=== PATIENT | male | born 1975 | race Two or more races ===

== ENCOUNTER 2024-07-16 13:38 | Emergency (ER) | payer OTHER, SELFPAY ==
[2024-07-16] VITALS (8 sets, daily range): BP systolic 130–148; BP diastolic 80–91; BMI 27.1
--- NOTE | 2024-07-16 14:39 | ED.GENMED ---
History of Present Illness
<IRENE Heredia - Last Filed: 07/16/24 21:43>
General
Chief Complaint: Abdominal Pain
Source: patient and spouse
Exam Limitations: none
Time Seen by Provider: 07/16/24 14:13
History of Present Illness
History of Present Illness:
This is a 48 y/o M with a PMH of HLD and prediabetes who presents with intermittent upper abdominal pain x 1 month. Initially patient reported it comes on with activity however now has noticed there is no association and may come on randomly during
the day. This was described as a squeezing sensation in the RUQ and near diaphragm that radiates around circumference of upper belly and back. He feels better with rest and worse with movement. This has been episodic x 1 month and usually
spontaneously resolves however todays episode did not resolve prompting him to come to ED. He took advil before coming to ED that seemed to have helped a little. This is a 9/10 pain at it's worst and the pain 'takes my breath away' and he is unable
to talk. There is associated pain on deep inspiration. This comes along during the squeezing pain felt in the upper abdomen and would resolve spontaneously. He denies fevers, lightheadedness, chest pain, shortness of breath, nausea, vomiting,
changes in bowel or bladder habits or paresthesias.
He denies a PMH of carditis, HTN, CHF, AAA, pancreatitis, cholecystitis, cholelithiasis, nephrolithiasis, hepatic disorders, PE, pneumonia, rib fracture. Family history significant for HLD in both parents. Abdominal surgery history unremarkable. He
used to smoke tobacco 'on special occasions'. He drinks liquor 3-4x weekly. He denies drug use. He has no sick contacts that he knows of. He denies travel history. No allergies to medications.
Past History
<IRENE Heredia - Last Filed: 07/16/24 21:43>
Social History
Tobacco: Former smoker
Alcohol: Occasional
Drug: None
Personal:
Review of Systems
<IRENE Heredia - Last Filed: 07/16/24 21:43>
Review of Systems
Constitutional: Reports no symptoms
EENT: Reports no symptoms
Respiratory: Reports other (pleuritic pain); Denies hemoptysis
Cardiac: Denies chest pain, diaphoresis or palpitations
ABD/GI: Reports abdominal pain; Denies nausea, vomiting, diarrhea or constipated
: Reports no symptoms; Denies dysuria, frequency, flank pain, bleeding or dark urine
Skin: Reports no symptoms
Neurological: Reports no symptoms
Endocrine: Reports no symptoms
Hematologic/Lymphatic: Reports no symptoms
Psychiatric: Reports no symptoms
Phy Exam
<IRENE Heredia Last Filed: 07/16/24 21:43>
General Physical Exam
General Presentation: well appearing and no apparent distress
General age: appears stated age
General Skin: warm and dry
General Habitus: normal
General Mental: alert
General Hydration: appears well hydrated
Cardiovascular Exam
Cardiovascular Exam: no murmur, normal peripheral pulses and bradycardia
Pulmonary Exam
Pulmonary Exam: lungs clear, no respiratory distress, no rales, no crackles, no rhonchi and no wheezing
Cough: no cough
Gastrointestinal Exam
Gastrointestinal Exam: normal bowel sounds, soft, non distended, hepatomegaly, no indwelling devices and no masses
Palpation: right upper quadrant: No tenderness and generalized: No tenderness
Musculoskeletal Exam
Musculoskeletal Exam: other (unable to stand due to pain)
Course
<IRENE Heredia - Last Filed: 07/16/24 21:43>
Orders/Labs/Results
Orders:
Orders
07/16/24 13:46
EKG [Electrocardiogram (*1)] Urgent
Reason for Study: Abdominal Pain
EKG- Treatment ONCE
07/16/24 15:04
US Abdomen Complete/Upper Urgent
Comment:
Reason For Exam: RUQ pain
07/16/24 15:33
Complete Blood Count/No Diff Urgent
Comprehensive Metabolic Panel Urgent
D-Dimer Urgent
Lipase Urgent
Magnesium Urgent
07/16/24 15:34
Urinalysis Reflex To Culture Urgent
Date Specimen was Collected: 07/16/24
Time Specimen was Collected: 15:13
Urine Microscopic Reflex Cult Urgent
Urine Culture Urgent
VENANCIO Source: U
Specimen Description:
Date Specimen was Collected: 07/16/24
Time Specimen was Collected: 15:13
07/16/24 16:39
CR Chest - 2 Views Urgent
Comment:
Reason For Exam: pain
07/16/24 17:42
CT Abd/pel Without Iv Or Oral Urgent
Comment:
Reason For Exam: back/flank pain w hematuria
Abnormal Lab Results
07/16/24 07/16/24
15:33 15:34
BUN 21 H mg/dl
(9-20)
Alkaline Phosphatase 37 L U/L
(38-126)
Ur Occult Blood Reflex 1+ A
(Negative)
Leukocyte Esterase Rfl 1+ A
(Negative)
Urine RBC 3-6 A /HPF
(0-2)
Urine Bacteria (Reflex) Moderate A
(Negative)
07/16/24 15:33
07/16/24 15:33
Vital Signs
Initial and Last Documented VS:
Initial Vital Signs
Temp Pulse Resp BP Pulse Ox
98.7 F 57 20 147/80 100
07/16/24 13:41 07/16/24 13:41 07/16/24 13:41 07/16/24 13:41 07/16/24 13:41
Last Documented Vital Signs
Temp Pulse Resp BP Pulse Ox
98.7 F 47 13 148/86 97
07/16/24 13:41 07/16/24 19:45 07/16/24 19:45 07/16/24 19:40 07/16/24 19:45
<Chandu Anderson MD - Last Filed: 07/16/24 19:50>
Orders/Labs/Results
Orders:
Orders
07/16/24 13:46
EKG [Electrocardiogram (*1)] Urgent
Reason for Study: Abdominal Pain
EKG- Treatment ONCE
07/16/24 15:04
US Abdomen Complete/Upper Urgent
Comment:
Reason For Exam: RUQ pain
07/16/24 15:33
Complete Blood Count/No Diff Urgent
Comprehensive Metabolic Panel Urgent
D-Dimer Urgent
Lipase Urgent
Magnesium Urgent
07/16/24 15:34
Urinalysis Reflex To Culture Urgent
Date Specimen was Collected: 07/16/24
Time Specimen was Collected: 15:13
Urine Microscopic Reflex Cult Urgent
Urine Culture Urgent
VENANCIO Source: U
Specimen Description:
Date Specimen was Collected: 07/16/24
Time Specimen was Collected: 15:13
07/16/24 16:39
CR Chest - 2 Views Urgent
Comment:
Reason For Exam: pain
07/16/24 17:42
CT Abd/pel Without Iv Or Oral Urgent
Comment:
Reason For Exam: back/flank pain w hematuria
Abnormal Lab Results
07/16/24 07/16/24
15:33 15:34
BUN 21 H mg/dl
(9-20)
Alkaline Phosphatase 37 L U/L
(38-126)
Ur Occult Blood Reflex 1+ A
(Negative)
Leukocyte Esterase Rfl 1+ A
(Negative)
Urine RBC 3-6 A /HPF
(0-2)
Urine Bacteria (Reflex) Moderate A
(Negative)
07/16/24 15:33
07/16/24 15:33
Vital Signs
Initial and Last Documented VS:
Initial Vital Signs
Temp Pulse Resp BP Pulse Ox
98.7 F 57 20 147/80 100
07/16/24 13:41 07/16/24 13:41 07/16/24 13:41 07/16/24 13:41 07/16/24 13:41
Last Documented Vital Signs
Temp Pulse Resp BP Pulse Ox
98.7 F 47 13 148/86 97
07/16/24 13:41 07/16/24 19:45 07/16/24 19:45 07/16/24 19:40 07/16/24 19:45
<IRENE Heredia - Last Filed: 07/16/24 21:43>
MDM/Problems Addressed
Differential Diagnosis Includes:
Not limited to: Pancreatitis vs cholecystitis vs biliary colic vs nephrolithiasis vs pneumonia vs PE vs muscle strain
MDM/Problems Addressed:
This is a 48 y/o M with a PMH of HLD and prediabetes who presents with intermittent upper abdominal pain x 1 month. No other symptoms reported. Vital signs stable. On exam he is well appearing, in no acute distress. Abdominal exam was benign,
negative murphys sign. Negative straight leg raise. Negative cross leg raise. No leukocytosis noted. Ddimer <0.27. ECG showing sinus eileen with no ST elevations. Abdominal US revealing 'hepatic fatty infiltration. two small probable gallbladder
polyps. no discrete stones'. CT abdomen showing 'Bilateral L5 pars defects with associated grade 2 anterolisthesis of L5 on S1'. Otherwise, no significant acute abnormality. Moderate bacteria and 1+ leukocyte esterase in UA. Asymptomatic and likely
incidental finding as it would not explain patient's symptoms. Pt is stable for discharge.
<IRENE Heredia - Last Filed: 07/16/24 21:43>
*Critical Care Note
Total Time (30-74mins, 75-104mins- exclusive of procedures): Not Applicable
ED Attending Note
<IRENE Heredia - Last Filed: 07/16/24 21:43>
-
Portions of this chart may have been created with voice recognition software.� Occasional wrong word or��sound alike� substitutions may have occurred due to the inherent limitations of voice recognition software.
<Chandu Anderson MD - Last Filed: 07/16/24 19:50>
ED Attending Note
Patient seen and examined by attending physician: Yes
ED Attending Note:
Patient presents to ED secondary to 1 month history of intermittent upper abdominal pain wrapping around to the back. Abdominal pain described as sharp, worse when standing up or with certain movements. Patient reports minimal pain when laying
down without movement. Denies trauma. Denies nausea, vomiting, or diarrhea. Denies fever or chills. Denies loss of sensation or weakness. Denies urinary or bowel incontinence. Denies recent illness. Patient has had back pain in the past, as
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 Denies recent travel or surgery. Denies family history of kidney stones or blood clots.
Physical Exam
General: no apparent distress, not acutely ill
Neck: supple. no meningeal signs.
Heart: s1/s2 regular rate and rhythm
Lungs: no acute respiratory distress. clear bilaterally
Abdomen: normal bowel sounds. not tender.
Back: no midline tenderness
Neuro: alert and oriented x 3. no focal neurological deficits
Skin: no rash
Psychiatric: well kept. interactive and cooperative
Extremities: no edema. no calf tenderness.
Patient with an unremarkable ED, including blood work, ultrasound, and chest x-ray, as well as D-dimer. However, in light of patient's ongoing symptoms along with blood noted on his urine study, will obtain CT abdomen pelvis without contrast to
evaluate for potential kidney stone.
CT abdomen/pelvis report reviewed and discussed with patient. No acute findings noted. Patient will be discharged home in stable condition, with recommendation to follow-up with his primary care physician for continual evaluation and treatment.
In the meantime, will advise patient to rest, apply warm compress, along with Tylenol/Motrin for symptomatic relief.
Discharge Plan
Departure
Patient Disposition: Home (Routine Discharge)
Date of Disposition: 07/16/24
Time of Disposition: 19:49
Patient with high blood pressure during this ER visit?: Yes
Condition: Good
Discharge Problem:
Musculoskeletal pain
Instructions: Gastritis (DC), Musculoskeletal Pain
Prescriptions:
No Action
rosuvastatin 10 mg Tablet
10 mg PO DAILY
Referrals:
Samanta France PA-C [Family Provider, Family Practice]
Activity Restrictions/Additional Instructions:
As discussed, please follow-up with your primary care physician for continual evaluation and treatment. In the meantime, recommend rest, warm compress, Tylenol/Motrin for relief. In addition, as your symptoms also may be secondary to gastritis,
recommend [id number] PPI medication, i.e. Protonix/Nexium/Pepcid.
Interventions
Interventions:
*Risk Screen - Suicide Last Done: 07/16/24 14:03
*General Assessment Last Done: 07/16/24 13:41
*Neglect/Abuse Screening Last Done: 07/16/24 14:03
*ED- Fall Risk Assessment Last Done: 07/16/24 14:03
*ED COVID-19 Vaccine History Last Done: 07/16/24 13:41
*Nursing Disposition Last Done: 07/16/24 20:04
YJ-Oxlmll-Ilhxurdrwe Assessment Last Done: 07/16/24 14:03
Discharge Date and Time
Discharge Date/Time: 07/16/24 20:05
Print Language: [place]
[2024-07-16 15:48] LABS: Urine Albumin Negative (Neg - Trace); Urine Bilirubin Negative (Negative); Urine Character Clear (Clear); Urine Color Yellow; Urine Glucose Negative (Negative); Urine Ketone Negative (Negative); Urine Leukocyte 1+ (Negative); Urine Nitrite Negative (Negative); Urine Occult Blood 1+ (Negative); Urine Urobilinogen Negative (Neg - 1+)
[2024-07-16 15:49] LABS: Hematocrit 40.4 % (39.0-52.0); Hemoglobin 14.7 g/dL (13.0-18.0); Mean Corp Hgb Conc. 36.4 g/dL (33.0-37.0); Mean Corpuscular Hgb 30.4 pg (27.0-31.0); Mean Corpuscular Volume 83.5 fL (80.0-94.0); Mean Platelet Volume 10.3 fL (7.4-10.4); Platelet Count 191 10^3/uL (130-400); Red Blood Cell Count 4.84 10^6/uL (4.70-6.10); Red Cell Dist. Width 11.9 % (11.5-14.5); White Blood Cell Count 5.9 10^3/uL (4.8-10.8)
[2024-07-16 15:56] LABS: Urine Squamous Cell 0-2 /LPF (Few)
[2024-07-16 15:57] LABS: Urine Bacteria Moderate (Negative); Urine White Cell 0-2 /HPF (0-5)
[2024-07-16 15:58] LABS: Urine Mucus Few
[2024-07-16 16:02] LABS: ALT (SGPT) 24 U/L (0-50); AST (SGOT) 21 U/L (17-59); Albumin 4.5 g/dl (3.5-5.0); Alkaline Phosphatase 37 U/L (38-126); Blood Urea Nitrogen 21 mg/dl (9-20); Calcium 9.9 mg/dl (8.4-10.2); Carbon Dioxide 29 mmol/L (22-30); Chloride 105 mmol/L (98-107); Estimated Creatinine Clearance 116 ml/min; Glucose 97 mg/dl (70-99); Lipase 59 U/L (23-300); Magnesium 2.3 mg/dl (1.6-2.3); Potassium 4.2 mmol/L (3.5-5.1); Sodium 140 mmol/L (135-145); Total Bilirubin 0.8 mg/dl (0.2-1.3); Total Protein 7.3 g/dl (6.3-8.2); eGFR > 60.00
[2024-07-16 16:05] LABS: D-Dimer < 0.27 ug/mlFEU (0.00-0.50)
== END 2024-07-16 20:05 | disposition home or self-care (01) ==
LOC: EMR 13:38
PROVIDERS: EMERGENCY PHYSICIAN Emergency Medicine; FAMILY PHYSICIAN Physician Assistant Medical
DX: M79.18 Myalgia, other site (principal); E78.00 Pure hypercholesterolemia, unspecified; R73.03 Prediabetes; Z87.891 Personal history of nicotine dependence
CPT/HCPCS: 99284; 71046; 74176; 76700; 80053; 81003; 81015; 83690; 83735; 85027; 85379; 87086; 93005